=== PATIENT | female | born 1940 | race Two or more races ===

== ENCOUNTER 2016-11-17 08:28 | Emergency (ER) | payer OTHER, MEDICAID ==
[~2016-11-17 08:28] MED LIST: ANTIVERT12.5 MG PO; BACLOFEN10 MG; BAYER ASPIRIN C81 MG PO; FERROUS SULFAT325 M2 PO; FUROSEMIDE20 MG PO; GLUCOTROL5 MG PO; IMDUR30 MG PO; KEFLEX500 MG PO; LAC PO; METOPROLOL SUCC25 M1 PO; NORCO1 TA2 PO; SIMVASTATIN20 M1 PO; TYLENOL EXTRA500 M2 PO; VITAMIN D32000 I2
[2016-11-17 10:59] LABS: CHLORIDE SERUM 105 mmol/L (98-107)
[2016-11-17 11:00] LABS: ALBUMIN 3.9 g/dL (3.4-5.0); ALKALINE PHOSPHATASE 68 U/L (46-116); ALT/SGPT 19 U/L (14-59); AMYLASE 48 U/L (25-115); AST/SGOT 14 U/L (15-37); CALCIUM 10.5 mg/dL (8.5-10.1); CREATININE SERUM 1.7 mg/dL (0.6-1.0); GLUCOSE SERUM 321 mg/dL (74-106); LIPASE 104 IU/L (73-393); SODIUM SERUM 141 mmol/L (136-145); TOTAL PROTEIN, SERUM 7.1 g/dL (6.4-8.2)
[2016-11-17 11:05] LABS: PLATELET COUNT 183 x10^3mcL (130-400); RED CELL DISTRIBUTION WIDTH 13.4 % (11.5-14.5)
[2016-11-17 11:12] LABS: BASOPHIL % 0 % (0-2)
[2016-11-17 15:04] VITALS: BP 145/68
== END 2016-11-17 15:04 | disposition home or self-care (01) ==
LOC: ED 08:28
PROVIDERS: Emergency Medicine
DX: K59.00 Constipation, unspecified (principal); E86.0 Dehydration; E11.9 Type 2 diabetes mellitus without complications; I10 Essential (primary) hypertension; I25.10 Atherosclerotic heart disease of native coronary artery without angina pectoris; E78.00 Pure hypercholesterolemia, unspecified; Z88.5 Allergy status to narcotic agent
CPT/HCPCS: 83880; J1815; J7030; Q0092